=== PATIENT | female | born 2005 | race Two or more races ===

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

== ENCOUNTER 2025-02-15 10:18 | Emergency (ER) | payer MEDICAID ==
[~2025-02-15] VITALS: Ht 160 cm; Wt 65.6 kg
[~2025-02-15 10:18] MED LIST changes: +[UNRECOGNIZED DRUG - CODE] OR
--- NOTE | 2025-02-15 10:49 | ED.PDOC ---
HPI Comments HPI: Poor Historian. 19-year-old female presents to emergency depart for evaluation of near-syncope that happened while she was at work this morning. Patient states having history of syncopal episodes and has been seen and evaluated by cardiology in the past and they do not know the cause of her syncopal episodes. Patient did not have any syncope today. 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 Patient was brought done here to the ED for further evaluation. Past Medical History: Anxiety, depression, insomnia Past Surgical History: Denies any REVIEW OF SYSTEMS: CONSTITUTIONAL: Denies acute: fever, diaphoresis, chills, HEAD: Denies acute: headache, photophobia Eyes: Denies acute: Double vision, vision loss, eye pain, eye discharge. EARS: Denies acute: tinnitus, hearing loss, ear discharge, ear pain, THROAT: Denies acute: sore throat, swelling, difficulty swallowing , pain with swallowing, change in voice. NECK: Denies acute: neck pain, neck swelling, stiff neck. HEART: Denies acute : chest pain, palpitations, LUNGS: Denies acute: SOB, wheezing, cough, hemoptysis ABDOMEN: Denies acute: abdominal pain, Nausea, Vomiting, diarrhea, melena , hematemesis, hematochezia SKIN: Denies acute: rash, redness, lesions, itchiness. EXTREMITIES: Denies acute: calf pain, numbness, tingling, weakness, denies pain in extremity. Denies acute: Low back pain. Neuro: Denies acute: focal neurological deficit, motor or sensory focal neurological deficit, tremors, seizure like activity, confusion, change in mental status, loss of bowel or bladder function, cauda equina like symptoms. : Denies acute: dysuria, hematuria, flank pain, increase in urinary frequency. PSYCH: Denies acute: hallucination, suicidal ideation, homicidal ideation. FEMALE: Denies acute: abnormal vaginal bleeding, foul odor, unusual discharge. PHYSICAL EXAM: General: no acute distress, awake and alert. Head: normocephalic, atraumatic. Neck: supple, trachea is midline, no swelling. Throat: Normal phonation. Eyes:, no erythema, no purulent discharge, no proptosis, no icterus. Heart: regular rate, regular rhythm, no significant murmur appreciated. Lungs: no apparent respiratory distress, Able to speak in full sentences. No wheezing, no rhonchi, no crackles. No stridors Clear to auscultation bilaterally. Abdomen: non tender to palpation, non distended, soft, no guarding, no rebound, + bowel sounds. Neuro: Awake, Alert, oriented to name, self, situation, follows commands GCS=15. Speech is normal. Skin: no petechia, no purpura, no cyanosis, non-pale, not jaundice. Lower extremities: --no - Pitting edema no deformity, no focal swelling, no calf TTP. Makes eye contact. moves all four extremities. Face: no apparent facial droop. Ambulating in the ED independently. PERRLA, EOM-I CN 2-12 are grossly intact, No nystagmus. No nuchal rigidity, Kernig's sign, Brudzinski's sign, no meningeal signs. ED COURSE: Chief Complaint: Dizziness Time Seen by MD: 10:28 Primary Care Provider: DONELL Reviewed Notes: Nurses Notes, Allergies Allergies: Coded Allergies: Penicillins (Verified Allergy, Unknown, 01/06/24) Home Meds Active Scripts Nitrofurantoin Monohydrate Mac (Macrobid) 100 Mg Cap, 100 MG PO BID for 7 Days, #14 CAP Prov:MOIZ LANDRUM DO 02/15/25 Pseudoephedrine (12HOUR DECONGESTANT) 120 Mg Tab, 120 MG OR BID for 10 Days, #20 TAB Prov:EDENILSON MORROW MD 01/29/24 Lorazepam (Ativan) 0.5 Mg Tab, 1 TAB PO DAILY for 5 Days, #5 TAB Prov:LEILA HINES MD 01/20/24 Ondansetron Odt 4MG Tab (ZOFRAN PO) 4 Mg Tb, 4 MG PO TID for 7 Days, #21 TAB ODT TAB-DISSOLVE IN MOUTH, THEN SWALLOW Prov:LEILA HINES MD 01/20/24 Dicyclomine Hcl (BENTYL CAPSULE) 10 Mg Cp, 2 CAP PO Q6HPRN PRN, #30 CAP 3 Refills Prov:RENATA ENRIQUEZ DO 01/06/24 Pantoprazole Sodium Sesquihydr (Protonix) 40 Mg Tab, 40 MG PO DAILY, #30 TAB Prov:RENATA ENRIQUEZ DO 01/06/24 Information Source: Patient Mode of Arrival: Ambulatory Past Medical History PAST MEDICAL HISTORY: Anxiety, GERD Surgical History: Denies all surgeries CORN GROWER 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 Was a procedure done?: No CP Differential Dx Differential Diagnosis: AV Block 1st Degree, AV Block 2nd Degree, AV Block 3rd Degree Differential Diagnosis: Other (Includes but not limited to thyroid disease, encephalopathy, electrolyte abnormality, sepsis, infection, intracranial pathology, drug adverse effects, arrhythmia, kidney insufficiency, ACS, CVA, malignancy, anemia) X-Ray, Labs, Meds, VS Vital Signs Date Time Temp Pulse Resp B/P (MAP) Pulse Ox O2 Delivery O2 Flow Rate FiO2 02/15/25 14:55 98.1 75 17 109/66 (80) 100 98.1 02/15/25 12:04 98.0 96 17 124/79 (94) 97 98.0 02/15/25 12:01 96 16 97 Room Air* 0 21 02/15/25 10:30 87 02/15/25 10:25 98.6 88 18 114/74 (87) 97 98.6 Lab Test 02/15/25 12:29 02/15/25 10:37 02/15/25 10:26 Range/Units Urine Color Yellow Yellow Urine Clarity Turbid H Clear Urine pH 5.5 5.0-9.0 Urine Specific [place] 1.034 1.001-1.035 Urine Protein Trace H Negative Urine Ketones 3+ H Negative Urine Blood Negative Negative /uL Urine Nitrite Negative Negative Urine Bilirubin Negative Negative Urine Urobilinogen Normal Negative mg/dL Urine Leukocyte Esterase 1+ Negative /uL Urine RBC 3 0 - 4 /hpf Urine Microscopic WBC 12 H 0-5 /HPF Urine Squamous Epithelial Cells Few <5 /hpf Urine Bacteria None seen None Seen /hpf Urine Hyaline Casts Few 0 - 2 /lpf Urine Mucus Few None Seen Urine Glucose Normal Normal mg/dL Urine Test Negative Negative Urine Opiates Screen Neg NEGATIVE Urine Fentanyl Screen Neg NEGATIVE Urine Barbiturates Screen Neg NEGATIVE Urine Phencyclidine Screen Neg NEGATIVE Urine Amphetamines Screen Neg NEGATIVE Urine Benzodiazepines Screen Neg NEGATIVE Urine Cocaine Screen Neg NEGATIVE Urine Cannabinoids Screen Pos NEGATIVE White Blood Count 7.5 4.4-10.8 10^3/uL Red Blood Count 4.94 4.0-5.20 10^6/uL Hemoglobin 14.2 12.2-16.2 g/dL Hematocrit 41.7 36.0-46.0 % Mean Corpuscular Volume 84.4 80.0-100.0 fL Mean Corpuscular Hemoglobin 28.8 28.0-32.0 pg Mean Corpuscular Hemoglobin Concent 34.1 32.0-36.0 g/dL Red Cell Distribution Width 13.6 11.8-14.3 % Platelet Count 372 140-450 10^3/uL Mean Platelet Volume 8.7 6.9-10.8 fL Neutrophils (%) (Auto) 73.2 37.0-80.0 % Lymphocytes (%) (Auto) 16.5 10.0-50.0 % Monocytes (%) (Auto) 9.3 0.0-12.0 % Eosinophils (%) (Auto) 0.5 0.0-7.0 % Basophils (%) (Auto) 0.5 0.0-2.0 % Neutrophils # (Auto) 5.5 1.6-8.6 10 ^3/uL Lymphocytes # (Auto) 1.2 0.4-5.4 10 ^3/uL Monocytes # (Auto) 0.7 0-1.3 10 ^3/uL Eosinophils # (Auto) 0 0-0.8 10 ^3/uL Basophils # (Auto) 0 0-0.2 10 ^3/uL Nucleated Red Blood Cells 0.0 % Sodium Level 137 136-145 mmol/L Potassium Level 3.9 3.5-5.1 mmol/L Chloride Level 106 98-107 mmol/L Carbon Dioxide Level 24 20-31 mmol/L Anion Gap 7 5-15 Blood Urea Nitrogen 16 9-23 mg/dL Creatinine 0.79 0.550-1.02 mg/dL Glomerular Filtration Rate Calc 110 >90 mL/min BUN/Creatinine Ratio 20.3 H 10.0-20.0 Serum Glucose 87 74-106 mg/dL Lactic Acid Level 0.9 0.4-2.0 mmol/L Calcium Level 10.8 H 8.7-10.4 mg/dL Magnesium Level 2.1 1.6-2.6 mg/dL Total Bilirubin 0.6 0.2-1.0 mg/dL Aspartate Amino Transferase (AST) 23 13-40 U/L Alanine Aminotransferase (ALT) 15 7-40 U/L Alkaline Phosphatase 56 46-116 U/L Troponin I High Sensitivity < 3 L </=34 ng/L Total Protein 7.9 5.7-8.2 g/dL Albumin 5.3 H 3.2-4.8 g/dL Lipase 27 12-53 U/L Thyroid Stimulating Hormone (TSH) 1.44 0.55-4.78 uIU/mL POC Glucose 89 70-106 mg/dl Current Medications Medications (Trade) Dose Ordered Sig/Tara Route Start Time Stop Time Status Last Admin Sodium Chloride 1,000 ml @ 1,000 mls/hr Q1H ONCE IV 02/15/25 11:30 02/15/25 12:29 DC 02/15/25 12:01 [place] [address] Ph: [phone] DIAGNOSTIC IMAGING Diagnostic Imaging Report : [id number] Signed PATIENT: JONATHAN WEAVER MACCT: [id number] UNIT: [id number] : 2005 LOC: ER ROOM / BED: / AGE / SEX: 19 / F ADM STATUS: REG ER SERVICE 1028 ORDERING PHYSICIAN: MOIZ LANDRUM DO PROCEDURE(s): CXRP - CHEST PORTABLE REASON: DIZZY, NEAR SYNCOPE ORDER NUMBER(s): [id number], ACCESSION NUMBER(s): [id number] CHEST RADIOGRAPH Indication: DIZZY, NEAR SYNCOPE Technique: Single frontal view of the chest was obtained COMPARISON: None FINDINGS: Lines and Tubes: None Lungs: Clear Pleura: No effusion. No pneumothorax. Cardiomediastinal contours: Unremarkable Bones: Unremarkable IMPRESSION: No acute disease. ATED BY: BRAIN ESCOTO MD DICTATED DATE/TIME: 02/15/25 1419 SIGNED BY: BRAIN ESCOTO MD SIGNED DATE/TIME: 02/15/25 1419 CC: Time of 1ST Reevaluation: 00:00 Reevaluation 1ST: Resolved Patient Education/Counseling: Diagnosis, Treatment Family Education/Counseling: No Family Present Comments Patient presented with the above HPI.---near-syncope--workup was initiated. patient was found with the above mentioned diagnosis. the following medications were ordered: please refer to order lists of meds and tests obtained by myself Dr. Landrum. Patient ED course and VS have been stabilized. Patient has been reassessed in the ED and remained in a stable condition. Pertinent incidental findings were discussed with the patient and/or family. Patient/family voices understanding and is agreeable with plan. Patient has been observed in the ED adequate length of time to insure improvement/stability. Escalation of care considered: Consideration of escalation to observation or admission Patient was DISCHARGED home in a stable condition. All the reports of any imaging studies that were ordered by myself were reviewed by myself. Departure 1 Departure Time of Disposition: 14:28 Impression: Primary Impression: Near syncope Additional Impression: UTI (urinary tract infection) Disposition: 01 HOME / SELF CARE / HOMELESS Condition: Stable Additional Instructions: Additional discharge instructions: You MUST follow-up with your primary care/family doctor in 1 to 2 days. If you are unable to see your primary care/family doctor, please return to our emergency room for re-assessment and re-evaluation in 1 to 2 days. Return to the emergency room here in our facility or to the nearest ER [facility] if your symptoms change or worsen. CONSULTATIONS: you MUST Follow-up for consultation as soon as possible with: neurology and cardiology in 1-2 days. Please call for appointment. You MUST call the consultants office yourself to make an appointment. You may need to arrange that through your insurance and/or your primary/family doctor. If you are unable to see the business objects consultant in 1 to 2 days, you must return to our emergency room (or any other ER of your choice) for re-assessment and re- evaluation. Adequate fluid hydration. e-Prescriptions Nitrofurantoin Monohydrate Mac (Macrobid) 100 Mg Cap 100 MG PO BID for 7 Days, #14 CAP Prov: MOIZ LANDRUM DO 02/15/25 Discharged With: Self Critical Care Note Critical Care Time?: No Heart Score Heart Score: Heart Score Response (Comments) Value History Slightly Suspicious 0 EKG Normal 0 Age <45 0 Risk Factors No known risk factors 0 Troponin Normal limit 0 Total 0 I personally scribed for MOIZ LANDRUM DO ([email or web address]) on 02/15/25 at 12:50. Electronically submitted by Jorge Barajas ([facility]). MOIZ LANDRUM DO Feb 15, 2025 10:49
[2025-02-15 10:57] LABS: Basophils # (auto) 0 10 ^3/uL (0-0.2); Basophils % (auto) 0.5 % (0.0-2.0); Eosinophils # (auto) 0 10 ^3/uL (0-0.8); Eosinophils % (auto) 0.5 % (0.0-7.0); Hematocrit 41.7 % (36.0-46.0); Hemoglobin 14.2 g/dL (12.2-16.2); Lymphocytes # (auto) 1.2 10 ^3/uL (0.4-5.4); Lymphocytes % (auto) 16.5 % (10.0-50.0); Mean Corpuscular Hemoglobin 28.8 pg (28.0-32.0); Mean Corpuscular Hgb Conc. 34.1 g/dL (32.0-36.0); Mean Corpuscular Volume 84.4 fL (80.0-100.0); Monocytes # (auto) 0.7 10 ^3/uL (0-1.3); Monocytes % (auto) 9.3 % (0.0-12.0); Neutrophils # (auto) 5.5 10 ^3/uL (1.6-8.6); Neutrophils % (auto) 73.2 % (37.0-80.0); Platelet Count (auto) 372 10^3/uL (140-450); Red Blood Cells 4.94 10^6/uL (4.0-5.20); Red Cell Distribution Width 13.6 % (11.8-14.3); White Blood Cell 7.5 10^3/uL (4.4-10.8)
[2025-02-15 11:17] LABS: Alanine Aminotransferase 15 U/L (7-40); Alkaline Phosphatase 56 U/L (46-116); Anion Gap 7 (5-15); Aspartate Aminotransferase 23 U/L (13-40); BUN/Creatinine Ratio 20.3 (10.0-20.0); Bilirubin, Total 0.6 mg/dL (0.2-1.0); Blood Urea Nitrogen 16 mg/dL (9-23); Carbon Dioxide 24 mmol/L (20-31); Chloride 106 mmol/L (98-107); Glucose 87 mg/dL (74-106); Lipase 27 U/L (12-53); Potassium 3.9 mmol/L (3.5-5.1); Sodium 137 mmol/L (136-145); Total Protein 7.9 g/dL (5.7-8.2)
[2025-02-15 11:31] LABS: Albumin 5.3 g/dL (3.2-4.8); Calcium 10.8 mg/dL (8.7-10.4)
[2025-02-15 12:01] VITALS: PULSE 96; RESP 16; O2SAT 97
[2025-02-15] MEDS: SODIUM CHLORIDE 0.9% 1,000 ML IV ONE (12:01)
[2025-02-15 12:30] LABS: Urine Bacteria None Seen /hpf (None Seen)
[2025-02-15 12:47] LABS: Urine Blood Negative /uL (Negative); Urine Clarity Turbid (Clear); Urine Color Yellow (Yellow); Urine Hyaline Cast FEW /lpf (0 - 2); Urine Mucus FEW (None Seen); Urine Protein, UAD TRACE (Negative); Urine Specific Gravity 1.034 (1.001-1.035); Urine Squamous Epithelial Cell FEW /hpf (<5); Urine Urobilinogen Normal (Negative); Urine WBC 12 /HPF (0-5); Urine pH 5.5 (5.0-9.0)
[2025-02-15 13:02] LABS: Cannabinoid Screen, Urine Pos (NEGATIVE)
[2025-02-15 13:03] LABS: Amphetamine Screen, Urine Neg (NEGATIVE); Barbiturate Scree,Urine Neg (NEGATIVE); Benzodiazephine Screen, Urine Neg (NEGATIVE); Cocaine Screen, Urine Neg (NEGATIVE); Opiate Scree,Urine Neg (NEGATIVE); Phencyclidine Screen, Urine Neg (NEGATIVE)
--- NOTE | 2025-02-15 14:21 | DVH ---
CHEST RADIOGRAPH Indication: DIZZY, NEAR SYNCOPE Technique: Single frontal view of the chest was obtained COMPARISON: None FINDINGS: Lines and Tubes: None Lungs: Clear Pleura: No effusion. No pneumothorax. Cardiomediastinal contours: Unremarkable Bones: Unremarkable IMPRESSION: No acute disease.
[2025-02-15] MEDS ORDERED: NITR-87 PO (14:29)
[2025-02-15 14:55] VITALS: BP 109/66; PULSE 75; RESP 17; TEMP 98.1; O2SAT 100
--- NOTE | 2025-02-16 12:19 | ECG ---
[facility] Test Date: 2025-02-15 Test Time: 10:30:24 Pat Name: JONATHAN WEAVER Department: ED Room: Gender: F Title Closer: YURI : 2005 Requested By: MOIZ LANDRUM Order Number: [id number] Reading MD: Gabe Stevenson Measurements Intervals [place] Rate: 87 P: 73 KS: 145 QRS: 97 QRSD: 90 T: 0 QT: 357 QTc: 430 Interpretive Statements Sinus rhythm Borderline right axis deviation Baseline wander in lead(s) V4 Electronically Signed On 02-17-2025 17:33:12 PDT by Gabe Stevenson Please click the below link to view image of tracing.
== END 2025-02-15 15:49 | disposition home or self-care (01) ==
LOC: ER 10:18
DX: R55 Syncope and collapse (principal); N39.0 Urinary tract infection, site not specified; F41.9 Anxiety disorder, unspecified; F32.A Depression, unspecified; K21.9 Gastro-esophageal reflux disease without esophagitis; Z98.890 Other specified postprocedural states; Z79.899 Other long term (current) drug therapy; Z88.0 Allergy status to penicillin
CPT/HCPCS: 36415; 71045; 80053; 80307; 81001; 81025; 82947; 83605; 83690; 83735; 84443; 84484; 85025; 93005; 96360; 96361; 99285; J7030; 82962

== ENCOUNTER 2025-04-14 07:01 | Inpatient (IN) | payer BC, MEDICAID ==
[~2025-04-14] VITALS: Ht 160 cm; Wt 68.5 kg
[~2025-04-14 07:01] MED LIST changes: +NITR-87 PO
[2025-04-14] MEDS: KETOROLAC TROMETH 30 MG/ML 1ML VIAL IV ONE (07:49)
[2025-04-14] MEDS: ONDANSETRON HCL 4 MG/2 ML VIAL IV ONE ×2 (07:49→10:15)
[2025-04-14] MEDS: SODIUM CHLORIDE 0.9% 2,000 ML IV ONE (07:49)
[2025-04-14 07:54] VITALS: PULSE 79; RESP 20; O2SAT 98
--- NOTE | 2025-04-14 08:11 | ED.PDOC ---
GI ASSESSMENT HPI Comments 19-year-old female presents to the ER with prior history of anxiety, depression, insomnia in the chief complaint of N/V/D. Patient reports on originally being coming to the ER one month was told she has a UTI and was given antibiotics, same thing happened last week and was given antibiotics, was given two course antibiotics for her UTI in the past month. Patient states on having bilateral flank pain with the left worse since Wednesday of 04/10/25, asthma as N/V/D X 0200 today. Patient does note that she had the chills earlier w/ a cough. Denies chills, fever, SOB, CP. No other associated symptoms, modifiers, recent injuries or sick contacts present at this time. Chief Complaint: Flank Pain Time Seen by MD: 07:20 Primary Care Provider: DONELL Reviewed Notes: Nurses Notes, Medications, Allergies Allergies: Coded Allergies: Penicillins (Verified Allergy, Unknown, 01/06/24) Home Meds Active Scripts Nitrofurantoin Monohydrate Mac (Macrobid) 100 Mg Cap, 100 MG PO BID for 7 Days, #14 CAP Prov:MOIZ LANDRUM DO 02/15/25 Pseudoephedrine (12HOUR DECONGESTANT) 120 Mg Tab, 120 MG OR BID for 10 Days, #20 TAB Prov:EDENILSON MORROW MD 01/29/24 Lorazepam (Ativan) 0.5 Mg Tab, 1 TAB PO DAILY for 5 Days, #5 TAB Prov:LEILA HINES MD 01/20/24 Ondansetron Odt 4MG Tab (ZOFRAN PO) 4 Mg Tb, 4 MG PO TID for 7 Days, #21 TAB ODT TAB-DISSOLVE IN MOUTH, THEN SWALLOW Prov:LEILA HINES MD 01/20/24 Dicyclomine Hcl (BENTYL CAPSULE) 10 Mg Cp, 2 CAP PO Q6HPRN PRN, #30 CAP 3 Refills Prov:RENATA ENRIQUEZ DO 01/06/24 Pantoprazole Sodium Sesquihydr (Protonix) 40 Mg Tab, 40 MG PO DAILY, #30 TAB Prov:RENATA ENRIQUEZ DO 01/06/24 Information Source: Patient Mode of Arrival: Ambulatory Timing: Hours Duration: Since onset, Hours Prehospital treatment: None Quality: None Vomitus: Bilious Stool: Loose Severity: Moderate Recent: None Recent Hx of: None Pain Location: None Associated sign and symptoms: Nausea, Vomiting, Diarrhea Past Medical History PAST MEDICAL HISTORY: Anxiety, Depression Past Medical History (Other): Insomnia Surgical History: Denies all surgeries 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 Family History Family History: Reviewed,noncontributory to illness, Family hx of Cancer Family History (Other): Ovarian cysts, posterior orthostatic tachycardia syndrome Social History Smoker: Non-Smoker Alcohol: Denies ETOH Use Drugs: Denies Drug Use Lives In: Home Constitutional: reports: chills; denies: diaphoresis, fatigue, fever, malaise, sweats, weakness, others EENTM: denies: blurred vision, double vision, ear bleeding, ear discharge, ear drainage, ear pain, ear ringing, eye pain, eye redness, hearing loss, mouth pain, mouth swelling, nasal discharge, nose bleeding, nose congestion, nose pain, photophobia, tearing, throat pain, throat swelling, voice changes, others Respiratory: denies: cough, hemoptysis, orthopnea, SOB at rest, shortness of breath, SOB with excertion, stridor, wheezing, others Gastrointestinal: reports: diarrhea, nausea, vomiting Genitourinary: reports: flank pain; denies: abnormal vagina bleeding, burning, dyspareunia, dysuria, frequency, hematuria, incontinence, pain, , vagina discharge, urgency, others Neurological: denies: dizziness, fainting, headache, left sided numbness, left sided weakness, numbness, paresthesia, pre-existing deficit, right sided numbness, right sided weakness, seizure, speech problems, tingling, tremors, weakness, others Musculoskeletal: denies: back pain, gout, joint pain, joint swelling, muscle pain, muscle stiffness, neck pain, others Integumetry: denies: bruises, change in color, change in hair/nails, dryness, laceration, lesions, lumps, rash, wounds, others Allergic/Immunocompromised: denies: Difficulty Healing, Frequent Infections, Hives, Itching, others Hematologic/Lymphatic: denies: anemia, blood clots, easy bleeding, easy bruising, swollen glands, others Endocrine: denies: excessive hunger, excessive sweating, excessive thirst, excessive urination, flushing, intolerance to cold, intolerance to heat, unexplained weight gain, unexplained weight loss, others Psychiatric: denies: anxiety, bipolar disorder, depression, hopeless, panic disorder, schizophrenia, sleepless, suicidal, others All Other Systems: Reviewed and Negative Physical Exam Exam Comments Left CVA tenderness, mild diffuse tender to palpation in the abdomen General Appearance: No Apparent Distress, Normal HEENT: Normal ENT Inspection, Pharynx Normal, TMs Normal Neck: Full Range of Motion, Non-Tender, Normal, Normal Inspection Respiratory: Chest Non-Tender, Lungs Clear, No Accessory Muscle Use, No Respiratory Distress, Normal Breath Sounds Cardiovascular: No Edema, No JVD, No Murmur, No Gallop, Normal Peripheral Pulses, Regular Rate/Rhythm Breast Exam: Deferred Gastrointestinal: No Organomegaly, Non Tender, No Pulsatile Mass, Normal Bowel Sounds, Soft Genitalia: Deferred Pelvic: Deferred Rectal: Deferred Extremities: No calf tenderness, Normal capillary refill, Normal inspection, Normal range of motion, Non-tender, No pedal edema Musculoskeletal : Apperance: Normal Neurologic: Alert, gatehouse attendant II-XII nml as Tested, No Motor Deficits, Normal Affect, Normal Mood, No Sensory Deficits Cerebellar Function: Normal Reflexes: Normal Skin: Dry, Normal Color, Warm Lymphatic: No Adenopathy Was a procedure done? Was a procedure done?: No GI differential Dx Differential Diagnosis: N/A Other Differential Diagnosis Pyelonephritis, UTI, dehydration, electrolyte abnormality, gastroenteritis X-Ray, Labs, Meds, VS Vital Signs Date Time Temp Pulse Resp B/P (MAP) Pulse Ox O2 Delivery O2 Flow Rate FiO2 04/14/25 09:56 98.1 72 18 114/72 (86) 99 98.1 04/14/25 07:54 79 20 98 Room Air* 0 21 04/14/25 07:42 98.7 101 18 120/62 (81) 97 98.7 04/14/25 07:38 97.8 110 18 121/72 (88) 95 97.8 Lab Test 04/14/25 08:06 04/14/25 07:34 Range/Units White Blood Count 11.6 H 4.4-10.8 10^3/uL Red Blood Count 4.88 4.0-5.20 10^6/uL Hemoglobin 13.9 12.2-16.2 g/dL Hematocrit 41.0 36.0-46.0 % Mean Corpuscular Volume 84.0 80.0-100.0 fL Mean Corpuscular Hemoglobin 28.4 28.0-32.0 pg Mean Corpuscular Hemoglobin Concent 33.8 32.0-36.0 g/dL Red Cell Distribution Width 13.0 11.8-14.3 % Platelet Count 297 140-450 10^3/uL Mean Platelet Volume 8.7 6.9-10.8 fL Neutrophils (%) (Auto) 89.3 H 37.0-80.0 % Lymphocytes (%) (Auto) 5.0 L 10.0-50.0 % Monocytes (%) (Auto) 4.6 0.0-12.0 % Eosinophils (%) (Auto) 0.2 0.0-7.0 % Basophils (%) (Auto) 0.9 0.0-2.0 % Neutrophils # (Auto) 10.3 H 1.6-8.6 10 ^3/uL Lymphocytes # (Auto) 0.6 0.4-5.4 10 ^3/uL Monocytes # (Auto) 0.5 0-1.3 10 ^3/uL Eosinophils # (Auto) 0 0-0.8 10 ^3/uL Basophils # (Auto) 0.1 0-0.2 10 ^3/uL Nucleated Red Blood Cells 0.1 % Sodium Level 142 136-145 mmol/L Potassium Level 4.0 3.5-5.1 mmol/L Chloride Level 109 H 98-107 mmol/L Carbon Dioxide Level 24 20-31 mmol/L Anion Gap 9 5-15 Blood Urea Nitrogen 7 L 9-23 mg/dL Creatinine 0.72 0.550-1.02 mg/dL Glomerular Filtration Rate Calc 123 >90 mL/min BUN/Creatinine Ratio 9.7 L 10.0-20.0 Serum Glucose 112 H 74-106 mg/dL Calcium Level 9.7 8.7-10.4 mg/dL Total Bilirubin 0.4 0.2-1.0 mg/dL Aspartate Amino Transferase (AST) 14 13-40 U/L Alanine Aminotransferase (ALT) 13 7-40 U/L Alkaline Phosphatase 51 46-116 U/L Total Protein 7.1 5.7-8.2 g/dL Albumin 4.7 3.2-4.8 g/dL Urine Color Light-yellow Yellow Urine Clarity Clear Clear Urine pH 6.5 5.0-9.0 Urine Specific [place] 1.018 1.001-1.035 Urine Protein Negative Negative Urine Ketones Negative Negative Urine Blood Negative Negative /uL Urine Nitrite Negative Negative Urine Bilirubin Negative Negative Urine Urobilinogen Normal Negative mg/dL Urine Leukocyte Esterase Negative Negative /uL Urine RBC 1 0 - 4 /hpf Urine Microscopic WBC 1 0-5 /HPF Urine Squamous Epithelial Cells Few <5 /hpf Urine Bacteria Few H None Seen /hpf Urine Mucus Few None Seen Urine Glucose Normal Normal mg/dL Urine Test Negative Negative Current Medications Medications (Trade) Dose Ordered Sig/[facility] Route Start Time Stop Time Status Last Admin Ondansetron HCl (Zofran) 4 mg ONCE ONCE IV 04/14/25 07:30 04/14/25 07:31 DC 04/14/25 07:49 Ketorolac Tromethamine (Toradol Injection) 30 mg ONCE ONCE IV 04/14/25 07:30 04/14/25 07:31 DC 04/14/25 07:49 Sodium Chloride 2,000 ml @ 1,000 mls/hr Q2H ONCE IV 04/14/25 07:30 04/14/25 09:29 DC 04/14/25 07:49 Ondansetron HCl (Zofran) 4 mg ONCE ONCE IV 04/14/25 10:15 04/14/25 10:16 DC 04/14/25 10:15 Levofloxacin/ Dextrose 100 ml @ 100 mls/hr ONCE ONCE IV 04/14/25 10:15 04/14/25 11:14 04/14/25 10:15 19-year-old female presents here with pyelonephritis and likely gastroenteritis. Patient states she has already had 2 course of p.o. outpatient antibiotics and continues to have worsening symptoms. She just finished a round of Macrobid this past Wednesday. She states she now has severe left flank pain and since last night she now has vomiting and diarrhea. Blood work was Done which was largely normal with a normal WBC count and normal metabolic profile. She does have CVA tenderness on my examination. Plan was initially to discharge the patient home with Levaquin. However despite giving the patient Zofran IV, fluids and Toradol in the ER, within 1 hour of the medications, patient's condition again worsened and she was vomiting again. At this time I do not believe she will be able to tolerate p.o. meds and given she has failed outpatient antibiotics she would benefit from inpatient admission. Patient has a penicillin allergy therefore Levaquin has been given.pt with with known history of Anaphylaxis. Time of 1ST Reevaluation: 07:50 Reevaluation 1ST: Unchanged Patient Education/Counseling: Diagnosis, Treatment, Prognosis Family Education/Counseling: No Family Present Departure 1 Departure Time of Disposition: 09:35 Impression: Primary Impression: Pyelonephritis Additional Impression: Gastroenteritis Disposition: 09 ADMITTED INPATIENT Condition: Fair Critical Care Note Critical Care Time?: No Stability Stability form required: No Heart Score Heart Score: Heart Score Response (Comments) Value History N/A 0 EKG N/A 0 Age N/A 0 Risk Factors N/A 0 Troponin N/A 0 Total 0 I personally scribed for KAREN RHODES MD ([email or web address]) on 04/14/25 at 08:11. Electronically submitted by Sigifredo Chavez ([employer]). I personally scribed for KAREN RHODES MD ([email or web address]) on 04/14/25 at 09:37. Electronically submitted by Sigifredo Chavez ([employer]). I personally scribed for KAREN RHODES MD ([email or web address]) on 04/14/25 at 09:38. Electronically submitted by Sigifredo Chavez ([facility] KAREN RHODES MD April 14, 2025 08:11
[2025-04-14 08:12] LABS: Urine Bacteria FEW /hpf (None Seen); Urine Blood Negative /uL (Negative); Urine Clarity Clear (Clear); Urine Color Light-Yellow (Yellow); Urine Mucus FEW (None Seen); Urine Protein, UAD Negative (Negative); Urine Specific Gravity 1.018 (1.001-1.035); Urine Squamous Epithelial Cell FEW /hpf (<5); Urine Urobilinogen Normal (Negative); Urine WBC 1 /HPF (0-5); Urine pH 6.5 (5.0-9.0)
[2025-04-14 08:13] LABS: Basophils # (auto) 0.1 10 ^3/uL (0-0.2); Basophils % (auto) 0.9 % (0.0-2.0); Eosinophils # (auto) 0 10 ^3/uL (0-0.8); Eosinophils % (auto) 0.2 % (0.0-7.0); Hemoglobin 13.9 g/dL (12.2-16.2); Lymphocytes # (auto) 0.6 10 ^3/uL (0.4-5.4); Mean Corpuscular Hemoglobin 28.4 pg (28.0-32.0); Mean Corpuscular Hgb Conc. 33.8 g/dL (32.0-36.0); Monocytes # (auto) 0.5 10 ^3/uL (0-1.3); Monocytes % (auto) 4.6 % (0.0-12.0); Neutrophils # (auto) 10.3 10 ^3/uL (1.6-8.6); Neutrophils % (auto) 89.3 % (37.0-80.0); Nucleated Red Blood Cells % 0.1 %; Platelet Count (auto) 297 10^3/uL (140-450); Red Blood Cells 4.88 10^6/uL (4.0-5.20); White Blood Cell 11.6 10^3/uL (4.4-10.8)
[2025-04-14 08:30] LABS: Alanine Aminotransferase 13 U/L (7-40); Albumin 4.7 g/dL (3.2-4.8); Alkaline Phosphatase 51 U/L (46-116); Anion Gap 9 (5-15); Aspartate Aminotransferase 14 U/L (13-40); BUN/Creatinine Ratio 9.7 (10.0-20.0); Calcium 9.7 mg/dL (8.7-10.4); Carbon Dioxide 24 mmol/L (20-31); Sodium 142 mmol/L (136-145); Total Protein 7.1 g/dL (5.7-8.2)
[2025-04-14 08:31] LABS: Bilirubin, Total 0.4 mg/dL (0.2-1.0)
[2025-04-14 08:34] LABS: Blood Urea Nitrogen 7 mg/dL (9-23); Chloride 109 mmol/L (98-107); Glucose 112 mg/dL (74-106)
[2025-04-14] MEDS: levoFLOXacin 500MG 100 ML IV ONE (10:15)
[2025-04-14] MEDS: METOCLOPRAMIDE HCL 5MG/ml INJ 2ml VIAL IV ONE (13:25)
[2025-04-14] MEDS: MORPHINE SULFATE 4 MG/ML SYR/VIAL IV ONE (13:27)
[2025-04-14] MEDS ORDERED: DICYCLOMINE HCL 10 MG CAP PO PRN (13:45)
[2025-04-14] MEDS: SODIUM CHLORIDE 0.9% 1,000 ML IV SCH (14:35)
--- NOTE | 2025-04-14 15:21 | DVH ---
INDICATION: left flank pain TECHNIQUE: Multiple real-time sonographic images of the kidneys and bladder were obtained. COMPARISON: None FINDINGS: The right kidney measures 0.7 cm in length, which is normal in size. There is normal echoge nicity of the right kidney. No hydronephrosis. The left kidney measures 10 cm in length, which is normal in size. Nonobstructing calculi left kidney .. No hydronephrosis. Carty catheter in bladder and bladder is empty IMPRESSION: 1. Right kidney measures 9.7 cm. 2. Left kidney measures 10 cm. There are multiple left renal calculi with no hydronephrosis.
--- NOTE | 2025-04-14 15:41 | DVHHP2 ---
History of Present Illness Reason for Visit: Left flank pain History of Present Illness This is a pleasant 19-year-old female presents to the ER with prior history of anxiety, depression, insomnia in the chief complaint of N/V/D. Patient reports on originally coming to the ER one month and was told she has a UTI and was given antibiotics, same thing happened last week and was given antibiotics, was given two course of antibiotics for her UTI in the past month. Patient states on having bilateral flank pain with the left worse since Wednesday of 04/10/25. The Patient does note that she had the chills earlier w/ a cough. The patient is concerned about her symptoms and would like to be further evaluated and treated. The patient will be admitted under hospitalist care to the medical- surgical unit. The patient Denies chills, fever, SOB, CP. No other associated symptoms, modifiers, recent injuries or sick contacts present at this time. The plan has been discussed with the patient in which all questions concerns have been addressed Psych: Anxiety, Depression Family History: Cancer Smoke: No ALCOHOL: none Drugs: None Lives: with Family Domestic Violence: Neg Review of Systems Constitutional: Yes: Chills Gastrointestinal: Nausea, Vomiting, Diarrhea Allergies: Coded Allergies: Penicillins (Verified Allergy, Unknown, 01/06/24) Medications Current Medications Medications Dose Ordered Sig/Tara Route Start Time Stop Time Status Last Admin Dose Admin Ketorolac Tromethamine 15 mg Q6HPRN PRN IV 04/14/25 13:30 04/19/25 13:29 Sodium Chloride 1,000 ml @ 100 mls/hr Q10H IV 04/14/25 13:30 04/14/25 14:35 100 MLS/HR Ondansetron HCl 4 mg Q4HP PRN IV 04/14/25 13:30 Acetaminophen 650 mg Q6HP PRN PO 04/14/25 13:30 Dicyclomine HCl 20 mg Q6HPRN PRN PO 04/14/25 13:45 Lorazepam 0.5 mg DAILY PO 04/15/25 10:00 Pantoprazole Sodium 40 mg DAILY PO 04/15/25 10:00 Exam Vital Signs Vital Signs Date Time Temp Pulse Resp B/P (MAP) Pulse Ox O2 Delivery O2 Flow Rate FiO2 04/14/25 13:27 72 12 116/68 04/14/25 11:02 98.6 98 98.6 04/14/25 07:54 Room Air* 0 21 General Appearance: Alert, Oriented X3, Cooperative, No acute distress HEENT: Atraumatic, PERRLA, Mucous membr. moist/pink Respiratory: Clear to auscultation, Normal air movement Cardiovascular: Normal S1, Normal S2, No murmurs Abdominal: Normal bowel sounds, Soft, No hepatospenomegaly, No masses Extremities: No clubbing, No cyanosis, No edema, Normal pulses, No tenderness/swelling Skin: No rashes, No breakdown Neuro: Normal gait, Normal speech, Strength at 5/5 X4 ext, Normal tone, Sensation intact, Cranial nerves 3-12 NL, Reflexes 2+ Psych/Mental Status: Mental status NL, Mood NL Labs/Xrays Labs Test 04/14/25 08:06 04/14/25 07:34 Range/Units White Blood Count 11.6 H 4.4-10.8 10^3/uL Red Blood Count 4.88 4.0-5.20 10^6/uL Hemoglobin 13.9 12.2-16.2 g/dL Hematocrit 41.0 36.0-46.0 % Mean Corpuscular Volume 84.0 80.0-100.0 fL Mean Corpuscular Hemoglobin 28.4 28.0-32.0 pg Mean Corpuscular Hemoglobin Concent 33.8 32.0-36.0 g/dL Red Cell Distribution Width 13.0 11.8-14.3 % Platelet Count 297 140-450 10^3/uL Mean Platelet Volume 8.7 6.9-10.8 fL Neutrophils (%) (Auto) 89.3 H 37.0-80.0 % Lymphocytes (%) (Auto) 5.0 L 10.0-50.0 % Monocytes (%) (Auto) 4.6 0.0-12.0 % Eosinophils (%) (Auto) 0.2 0.0-7.0 % Basophils (%) (Auto) 0.9 0.0-2.0 % Neutrophils # (Auto) 10.3 H 1.6-8.6 10 ^3/uL Lymphocytes # (Auto) 0.6 0.4-5.4 10 ^3/uL Monocytes # (Auto) 0.5 0-1.3 10 ^3/uL Eosinophils # (Auto) 0 0-0.8 10 ^3/uL Basophils # (Auto) 0.1 0-0.2 10 ^3/uL Nucleated Red Blood Cells 0.1 % Sodium Level 142 136-145 mmol/L Potassium Level 4.0 3.5-5.1 mmol/L Chloride Level 109 H 98-107 mmol/L Carbon Dioxide Level 24 20-31 mmol/L Anion Gap 9 5-15 Blood Urea Nitrogen 7 L 9-23 mg/dL Creatinine 0.72 0.550-1.02 mg/dL Glomerular Filtration Rate Calc 123 >90 mL/min BUN/Creatinine Ratio 9.7 L 10.0-20.0 Serum Glucose 112 H 74-106 mg/dL Calcium Level 9.7 8.7-10.4 mg/dL Total Bilirubin 0.4 0.2-1.0 mg/dL Aspartate Amino Transferase (AST) 14 13-40 U/L Alanine Aminotransferase (ALT) 13 7-40 U/L Alkaline Phosphatase 51 46-116 U/L Total Protein 7.1 5.7-8.2 g/dL Albumin 4.7 3.2-4.8 g/dL Urine Color Light-yellow Yellow Urine Clarity Clear Clear Urine pH 6.5 5.0-9.0 Urine Specific [place] 1.018 1.001-1.035 Urine Protein Negative Negative Urine Ketones Negative Negative Urine Blood Negative Negative /uL Urine Nitrite Negative Negative Urine Bilirubin Negative Negative Urine Urobilinogen Normal Negative mg/dL Urine Leukocyte Esterase Negative Negative /uL Urine RBC 1 0 - 4 /hpf Urine Microscopic WBC 1 0-5 /HPF Urine Squamous Epithelial Cells Few <5 /hpf Urine Bacteria Few H None Seen /hpf Urine Mucus Few None Seen Urine Glucose Normal Normal mg/dL Urine Test Negative Negative Assessment/Plan Assessment/Plan Left flank pain--patient complain of bilateral flank pain worse on left since Wednesday associated with chills, nausea, vomiting and diarrhea Patient came to ER one month ago and was given antibiotic for her UTI Patient's symptoms has not improved despite being on two rounds of p.o. antibiotics Admit to medical-surgical unit Reviewed CBC shows leukocytosis Reviewed BMP which is normal test is normal Urinalysis is normal Ordered kidney ultrasound pending IV hydration IV antibiotic patient was given levofloxacin in ER IV Toradol p.r.n. for pain IV antiemetic Clear liquid diet Reconcile home medication DVT prophylaxis not indicated patient ambulatory PUD prophylaxis continue Protonix Labs in a.m. Discussed plan of care with the patient in which all questions concerns have been addressed Plan discussed with: Patient My Orders Orders - REKHA VEGA Procedure Category Date Status Time Ketorolac Injection PHA 04/14/25 In Process (Toradol Injection) 13:30 Admit ADMIT 04/14/25 Transmitted 13:27 Sodium Chloride 0.9% PHA 04/14/25 In Process 13:30 Ondansetron Hcl PHA 04/14/25 In Process (Zofran) 13:30 Complete Blood Count LAB 04/15/25 Verified 04:00 Comprehensive LAB 04/15/25 Verified Metabolic Panel 04:00 Condition: Fair SOFIA 04/14/25 In Process 13:27 Acetaminophen Tablet PHA 04/14/25 In Process (Tylenol Tablet) 13:30 Clear Liq Diet DIET 04/14/25 Transmitted Lunch BRP SOFIA 04/14/25 In Process 13:27 Dicyclomine Capsule PHA 04/14/25 In Process (Bentyl Capsule) 13:45 Lorazepam Tablet PHA 04/15/25 In Process (Ativan Tablet) 10:00 Pantoprazole Tablet PHA 04/15/25 In Process (Protonix Tablet) 10:00 Kidney US 04/14/25 Resulted 14:19 Date of Service: April 14, 2025 Billing Provider: REKHA VEGA Common Visit Codes: [id number] INP/OBS CARE (HIGH) REKHA VEGA April 14, 2025 15:41
[2025-04-14] MEDS: cefTRIAXone 1GM/50ML D5W 50 ML IV ONE (15:45)
[2025-04-14 17:50] VITALS: BP 109/61; PULSE 67; RESP 18; TEMP 98.7; O2SAT 98
[2025-04-14 17:53] VITALS: BP 109/61; PULSE 67; RESP 15; RESP 18; TEMP 98.4; O2SAT 98
[2025-04-14 20:00] VITALS: PULSE 65; RESP 19; O2SAT 98
[2025-04-14 21:00] VITALS: BP 99/74; PULSE 65; RESP 19; TEMP 97.4; O2SAT 98
[2025-04-15] VITALS (7 sets, daily range): BP systolic 101–119; BP diastolic 52–64; PULSE 61–74; RESP 15–20; TEMP 97.5–98.4; O2SAT 94–98
[2025-04-15] MEDS: ACETAMINOPHEN 325 MG TAB PO PRN (04:33)
[2025-04-15 08:21] LABS: Basophils # (auto) 0 10 ^3/uL (0-0.2); Basophils % (auto) 0.4 % (0.0-2.0); Eosinophils # (auto) 0.4 10 ^3/uL (0-0.8); Eosinophils % (auto) 6.3 % (0.0-7.0); Hematocrit 37.3 % (36.0-46.0); Lymphocytes # (auto) 1.3 10 ^3/uL (0.4-5.4); Mean Corpuscular Hgb Conc. 34.7 g/dL (32.0-36.0); Mean Corpuscular Volume 83.7 fL (80.0-100.0); Monocytes # (auto) 0.5 10 ^3/uL (0-1.3); Monocytes % (auto) 8.6 % (0.0-12.0); Neutrophils # (auto) 3.5 10 ^3/uL (1.6-8.6); Neutrophils % (auto) 61.7 % (37.0-80.0); Nucleated Red Blood Cells % 0.4 %; Platelet Count (auto) 250 10^3/uL (140-450); Red Blood Cells 4.46 10^6/uL (4.0-5.20); Red Cell Distribution Width 12.9 % (11.8-14.3); White Blood Cell 5.7 10^3/uL (4.4-10.8)
[2025-04-15 08:36] LABS: Alanine Aminotransferase 10 U/L (7-40); Albumin 4.2 g/dL (3.2-4.8); Alkaline Phosphatase 47 U/L (46-116); Anion Gap 9 (5-15); Aspartate Aminotransferase 14 U/L (13-40); BUN/Creatinine Ratio 8.9 (10.0-20.0); Bilirubin, Total 0.6 mg/dL (0.2-1.0); Calcium 9.8 mg/dL (8.7-10.4); Carbon Dioxide 24 mmol/L (20-31); Glucose 100 mg/dL (74-106); Potassium 4.3 mmol/L (3.5-5.1); Sodium 140 mmol/L (136-145); Total Protein 6.3 g/dL (5.7-8.2)
[2025-04-15 08:39] LABS: Blood Urea Nitrogen 7 mg/dL (9-23); Chloride 107 mmol/L (98-107)
[2025-04-15] MEDS ORDERED: cefTRIAXone 1GM/50ML D5W 50 ML IV SCH (09:00)
[2025-04-15] MEDS: PANTOPRAZOLE 40 MG TAB PO SCH (10:12)
[2025-04-15] MEDS: LORazepam 0.5 MG TAB PO SCH (10:12)
[2025-04-15] MEDS: levoFLOXacin 500MG 100 ML IV SCH (11:55)
[2025-04-15] MEDS: KETOROLAC TROMETH 30 MG/ML 1ML VIAL IV PRN (11:56)
--- NOTE | 2025-04-15 13:27 | DVHPN2 ---
Reviewed: Care Plan, H&P, Labs, Medications, Previous Orders, Radiology Changes from previous H/P or p: No Changes Gastrointestinal: Nausea, Vomiting, Diarrhea Objective Vitals Vital Signs Date Time Temp Pulse Resp B/P (MAP) Pulse Ox O2 Delivery O2 Flow Rate FiO2 04/15/25 13:16 98.2 67 15 103/59 (74) 98 98.2 04/14/25 20:00 Room Air* 0 21 Intake/Output Intake and Output 04/15/25 07:00 Intake Total 405 ml Balance 405 ml Intake Oral 405 ml # Voids 2 Medications Current Medications Medications Dose Ordered Sig/Tara Route Start Time Stop Time Status Last Admin Dose Admin Ketorolac Tromethamine 15 mg Q6HPRN PRN IV 04/14/25 13:30 04/19/25 13:29 04/15/25 11:56 15 MG Sodium Chloride 1,000 ml @ 100 mls/hr Q10H IV 04/14/25 13:30 04/15/25 12:07 100 MLS/HR Ondansetron HCl 4 mg Q4HP PRN IV 04/14/25 13:30 Acetaminophen 650 mg Q6HP PRN PO 04/14/25 13:30 04/15/25 10:26 650 MG Dicyclomine HCl 20 mg Q6HPRN PRN PO 04/14/25 13:45 Lorazepam 0.5 mg DAILY PO 04/15/25 10:00 04/15/25 10:12 0.5 MG Pantoprazole Sodium 40 mg DAILY PO 04/15/25 10:00 04/15/25 10:12 40 MG Ceftriaxone Sodium 50 ml @ 100 mls/hr DAILY@09 IV 04/15/25 09:00 Cancel Levofloxacin/ Dextrose 100 ml @ 100 mls/hr DAILY IV 04/15/25 10:00 04/15/25 11:55 100 MLS/HR Laboratory Results Laboratory Tests 04/15/25 08:05 Chemistry Test 04/15/25 08:05 Albumin 4.2 g/dL (3.2-4.8) Calcium Level 9.8 mg/dL (8.7-10.4) Total Protein 6.3 g/dL (5.7-8.2) LFT Test 04/15/25 08:05 Alanine Aminotransferase (ALT) 10 U/L (7-40) Alkaline Phosphatase 47 U/L (46-116) Aspartate Amino Transferase (AST) 14 U/L (13-40) Total Bilirubin 0.6 mg/dL (0.2-1.0) Urinalysis Test 04/14/25 07:34 Urine Color Light-yellow (Yellow) Urine Clarity Clear (Clear) Urine pH 6.5 (5.0-9.0) Urine Specific [place] 1.018 (1.001-1.035) Urine Protein Negative (Negative) Urine Ketones Negative (Negative) Urine Blood Negative /uL (Negative) Urine Nitrite Negative (Negative) Urine Bilirubin Negative (Negative) Urine Urobilinogen Normal mg/dL (Negative) Urine Leukocyte Esterase Negative /uL (Negative) Urine RBC 1 /hpf (0 - 4) Urine Microscopic WBC 1 /HPF (0-5) Urine Squamous Epithelial Cells Few /hpf (<5) Urine Bacteria Few /hpf (None Seen) H Urine Mucus Few (None Seen) Urine Glucose Normal mg/dL (Normal) Urine Test Negative (Negative) Microbiology Microbiology Date/Time Source Procedure Growth Status 04/14/25 07:34 Voided Urine Urine Culture - Preliminary Resulted Labs and/or images reviewed: Labs reviewed by me, Image(s) reviewed by me Assessment/Plan Assessment/Plan Acute left flank pain: Toradol Multiple left renal calculi: Consult for Urology Dr. Winter UTI: Urine cultures Levaquin Anxiety Depression Plan discussed with: Patient Date of Service: April 15, 2025 Billing Provider: VALENTINO JACOB MD Common Visit Codes: [id number] INP/OBS CARE(HIGH) VALENTINO JACOB MD April 15, 2025 13:27
--- NOTE | 2025-04-15 17:24 | DVH ---
Exam: CT CT AB PEL WO CON-NO ORAL OR IV History: kidney stones Comparison Study: CT CT AB PEL WO CON-NO ORAL OR IV on DOS: 01/20/24 TECHNIQUE: Multidetector CT of the abdomen and pelvis without IV contrast. Axial, coronal and sagitta l multiplanar reformats were obtained from the axial data set by the technologist. Radiation Dose Information: CT Dose: CTDI volume is 8.03 mGy. Dose-length product is 422.6 mGy*cm FINDINGS: The lung bases are clear. Partially visualized heart is unremarkable. Liver, spleen, gallbladder, pancreas and adrenal glands unremarkable. Ureters and urinary bladder unremarkable. Uterus is unremarkable. 2.2 cm left ovarian cyst with 3.5 c m right ovarian cyst. Uqrn-cl-wjzlocqs distention of the stomach filled with ingested material. Small bowel loops unremarka ble. Appendicolith is noted over the distal Appendix. Otherwise, appendix is unremarkable. Small to moderate amount of fecal material within the colon. No evidence of intraperitoneal free air . Trace amount of free fluid within the cul-de-sac which is most likely physiologic. No evidence of aortic aneurysm. Shotty mesenteric lymph nodes. The soft tissues are unremarkable. No destructive osseous lesions noted. IMPRESSION: No acute abdominal or pelvic finding. Radiation optimization: All CT scans at this facility use at least one of these dose optimization mikhail hniques: automated exposure control mA and/or kV adjustment per patient size (includes targeted exam s where dose is matched to clinical indication) or iterative reconstruction.
--- NOTE | 2025-04-15 18:09 | DVHINCON2 ---
Date of service: April 15, [address] Moreau Reason for Consultation kidney stones History of Present Illness History Source: Patient, RN Notes, MD Notes Exam Limitations: No limitations HPI 19 yo female with abdominal pain n/v/d. Recently treated for UTI. US showed possible left sided renal stones. CT was negative for stones. I personally reviewed the images to confirm no stones or other pathology. Home Meds Active Scripts Nitrofurantoin Monohydrate Mac (Macrobid) 100 Mg Cap, 100 MG PO BID for 7 Days, #14 CAP Prov:MOIZ LANDRUM DO 02/15/25 Pseudoephedrine (12HOUR DECONGESTANT) 120 Mg Tab, 120 MG OR BID for 10 Days, #20 TAB Prov:EDENILSON MORROW MD 01/29/24 Lorazepam (Ativan) 0.5 Mg Tab, 1 TAB PO DAILY for 5 Days, #5 TAB Prov:LEILA HINES MD 01/20/24 Ondansetron Odt 4MG Tab (ZOFRAN PO) 4 Mg Tb, 4 MG PO TID for 7 Days, #21 TAB ODT TAB-DISSOLVE IN MOUTH, THEN SWALLOW Prov:LEILA HINES MD 01/20/24 Dicyclomine Hcl (BENTYL CAPSULE) 10 Mg Cp, 2 CAP PO Q6HPRN PRN, #30 CAP 3 Refills Prov:RENATA ENRIQUEZ DO 01/06/24 Pantoprazole Sodium Sesquihydr (Protonix) 40 Mg Tab, 40 MG PO DAILY, #30 TAB Prov:RENATA ENRIQUEZ DO 01/06/24 Past Medical History Psychiatric: Anxiety, Depression Review of Systems Gastrointestinal: Nausea, Vomiting, Abdominal Pain, Diarrhea H&P Exam Vital Signs Vital Signs Date Time Temp Pulse Resp B/P (MAP) Pulse Ox O2 Delivery O2 Flow Rate FiO2 04/15/25 16:42 97.6 70 15 102/54 (70) 96 97.6 04/15/25 08:00 Room Air* 0 21 Labs/Xrays [facility] [id number] [place] [id number] Ph: [phone] DIAGNOSTIC IMAGING Diagnostic Imaging Report : [id number] Signed PATIENT: JONATHAN WEAVER MACCT: [id number] UNIT: [id number] : 2005 LOC: [facility] ROOM / BED: [facility] / A AGE / SEX: 19 / F ADM STATUS: ADM IN SERVICE 1434 ORDERING PHYSICIAN: PAKO GILMORE NP PROCEDURE(s): ABPL - CT AB PEL WO CON-NO ORAL OR IV REASON: kidney stones ORDER NUMBER(s): [id number], ACCESSION NUMBER(s): [id number] Exam: CT CT AB PEL WO CON-NO ORAL OR IV History: kidney stones Comparison Study: CT CT AB PEL WO CON-NO ORAL OR IV on DOS: 01/20/24 TECHNIQUE: Multidetector CT of the abdomen and pelvis without IV contrast. Axial, coronal and sagittal multiplanar reformats were obtained from the axial data set by the technologist. Radiation Dose Information: CT Dose: CTDI volume is 8.03 mGy. Dose-length product is 422.6 mGy*cm FINDINGS: The lung bases are clear. Partially visualized heart is unremarkable. Liver, spleen, gallbladder, pancreas and adrenal glands unremarkable. Ureters and urinary bladder unremarkable. Uterus is unremarkable. 2.2 cm left ovarian cyst with 3.5 cm right ovarian cyst. Vyhm-jl-kfphktum distention of the stomach filled with ingested material. Small bowel loops unremarkable. Appendicolith is noted over the distal Appendix. Otherwise, appendix is unremarkable. Small to moderate amount of fecal material within the colon. No evidence of intraperitoneal free air . Trace amount of free fluid within the cul-de-sac which is most likely physiologic. No evidence of aortic aneurysm. Shotty mesenteric lymph nodes. The soft tissues are unremarkable. No destructive osseous lesions noted. IMPRESSION: No acute abdominal or pelvic finding. Radiation optimization: All CT scans at this facility use at least one of these dose optimization techniques: automated exposure control mA and/or kV adjustment per patient size (includes targeted exams where dose is matched to clinical indication) or iterative reconstruction. ATED BY: CHERELLE SILVEIRA DO DICTATED DATE/TIME: 04/15/251721 SIGNED BY: CHERELLE SILVEIRA DO SIGNED DATE/TIME: 04/15/251721 CC: Labs Test 04/15/25 08:05 04/14/25 07:34 Range/Units White Blood Count 5.7 # 4.4-10.8 10^3/uL Red Blood Count 4.46 4.0-5.20 10^6/uL Hemoglobin 13.0 12.2-16.2 g/dL Hematocrit 37.3 36.0-46.0 % Mean Corpuscular Volume 83.7 80.0-100.0 fL Mean Corpuscular Hemoglobin 29.0 28.0-32.0 pg Mean Corpuscular Hemoglobin Concent 34.7 32.0-36.0 g/dL Red Cell Distribution Width 12.9 11.8-14.3 % Platelet Count 250 140-450 10^3/uL Mean Platelet Volume 8.9 6.9-10.8 fL Neutrophils (%) (Auto) 61.7 37.0-80.0 % Lymphocytes (%) (Auto) 23.0 10.0-50.0 % Monocytes (%) (Auto) 8.6 0.0-12.0 % Eosinophils (%) (Auto) 6.3 0.0-7.0 % Basophils (%) (Auto) 0.4 0.0-2.0 % Neutrophils # (Auto) 3.5 1.6-8.6 10 ^3/uL Lymphocytes # (Auto) 1.3 0.4-5.4 10 ^3/uL Monocytes # (Auto) 0.5 0-1.3 10 ^3/uL Eosinophils # (Auto) 0.4 0-0.8 10 ^3/uL Basophils # (Auto) 0 0-0.2 10 ^3/uL Nucleated Red Blood Cells 0.4 % Sodium Level 140 136-145 mmol/L Potassium Level 4.3 3.5-5.1 mmol/L Chloride Level 107 98-107 mmol/L Carbon Dioxide Level 24 20-31 mmol/L Anion Gap 9 5-15 Blood Urea Nitrogen 7 L 9-23 mg/dL Creatinine 0.79 0.550-1.02 mg/dL Glomerular Filtration Rate Calc 110 >90 mL/min BUN/Creatinine Ratio 8.9 L 10.0-20.0 Serum Glucose 100 74-106 mg/dL Calcium Level 9.8 8.7-10.4 mg/dL Total Bilirubin 0.6 0.2-1.0 mg/dL Aspartate Amino Transferase (AST) 14 13-40 U/L Alanine Aminotransferase (ALT) 10 7-40 U/L Alkaline Phosphatase 47 46-116 U/L Total Protein 6.3 5.7-8.2 g/dL Albumin 4.2 3.2-4.8 g/dL Urine Color Light-yellow Yellow Urine Clarity Clear Clear Urine pH 6.5 5.0-9.0 Urine Specific [place] 1.018 1.001-1.035 Urine Protein Negative Negative Urine Ketones Negative Negative Urine Blood Negative Negative /uL Urine Nitrite Negative Negative Urine Bilirubin Negative Negative Urine Urobilinogen Normal Negative mg/dL Urine Leukocyte Esterase Negative Negative /uL Urine RBC 1 0 - 4 /hpf Urine Microscopic WBC 1 0-5 /HPF Urine Squamous Epithelial Cells Few <5 /hpf Urine Bacteria Few H None Seen /hpf Urine Mucus Few None Seen Urine Glucose Normal Normal mg/dL Urine Test Negative Negative Microbiology Date/Time Source Procedure Growth Status 04/14/25 07:34 Voided Urine Urine Culture - Preliminary Resulted Assessment/Plan Problem List: (1) Abdominal pain Plan no intervention indicated. urology signing off Plan discussed with: PAKO Plaza NP April 15, 2025 18:09
[2025-04-15] MEDS: ONDANSETRON HCL 4 MG/2 ML VIAL IV PRN (18:38)
[2025-04-16] VITALS (7 sets, daily range): BP systolic 103–116; BP diastolic 53–70; PULSE 65–85; RESP 15–18; TEMP 36.6; O2SAT 97–100
[2025-04-16] MEDS: SODIUM CHLORIDE 0.9% 1,000 ML IV ONE (08:45)
[2025-04-16] MEDS ORDERED: TRAM-626 PO (12:26)
[2025-04-16] MEDS ORDERED: CIPR-173 PO (12:26)
--- NOTE | 2025-04-16 12:31 | DVHPN2 ---
Reviewed: Care Plan, H&P, Labs, Medications, Previous Orders, Radiology Changes from previous H/P or p: No Changes Gastrointestinal: Nausea, Vomiting, Diarrhea Objective Vitals Vital Signs Date Time Temp Pulse Resp B/P (MAP) Pulse Ox O2 Delivery O2 Flow Rate FiO2 04/16/25 08:31 98.3 65 15 115/53 (73) 100 98.3 04/15/25 20:05 Room Air* 0 21 Intake/Output Intake and Output 04/16/25 07:00 Intake Total 1700 ml Balance 1700 ml Intake Oral 1200 ml IV Total 500 ml # Voids 13 # Bowel Movements 4 Medications Current Medications Medications Dose Ordered Sig/Tara Route Start Time Stop Time Status Last Admin Dose Admin Ketorolac Tromethamine 15 mg Q6HPRN PRN IV 04/14/25 13:30 04/19/25 13:29 04/16/25 10:21 15 MG Sodium Chloride 1,000 ml @ 100 mls/hr Q10H IV 04/14/25 13:30 04/15/25 12:07 100 MLS/HR Ondansetron HCl 4 mg Q4HP PRN IV 04/14/25 13:30 04/15/25 18:38 4 MG Acetaminophen 650 mg Q6HP PRN PO 04/14/25 13:30 04/16/25 08:34 650 MG Dicyclomine HCl 20 mg Q6HPRN PRN PO 04/14/25 13:45 Lorazepam 0.5 mg DAILY PO 04/15/25 10:00 04/16/25 10:21 0.5 MG Pantoprazole Sodium 40 mg DAILY PO 04/15/25 10:00 04/16/25 10:22 40 MG Ceftriaxone Sodium 50 ml @ 100 mls/hr DAILY@09 IV 04/15/25 09:00 Cancel Levofloxacin/ Dextrose 100 ml @ 100 mls/hr DAILY IV 04/15/25 10:00 04/16/25 10:21 100 MLS/HR Laboratory Results Laboratory Tests 04/15/25 08:05 Urinalysis Test 04/14/25 07:34 Urine Color Light-yellow (Yellow) Urine Clarity Clear (Clear) Urine pH 6.5 (5.0-9.0) Urine Specific [place] 1.018 (1.001-1.035) Urine Protein Negative (Negative) Urine Ketones Negative (Negative) Urine Blood Negative /uL (Negative) Urine Nitrite Negative (Negative) Urine Bilirubin Negative (Negative) Urine Urobilinogen Normal mg/dL (Negative) Urine Leukocyte Esterase Negative /uL (Negative) Urine RBC 1 /hpf (0 - 4) Urine Microscopic WBC 1 /HPF (0-5) Urine Squamous Epithelial Cells Few /hpf (<5) Urine Bacteria Few /hpf (None Seen) H Urine Mucus Few (None Seen) Urine Glucose Normal mg/dL (Normal) Urine Test Negative (Negative) Microbiology Microbiology Date/Time Source Procedure Growth Status 04/14/25 07:34 Voided Urine Urine Culture - Final Complete Labs and/or images reviewed: Labs reviewed by me, Image(s) reviewed by me Assessment/Plan Assessment/Plan Acute left flank pain: Toradol Multiple left renal calculi by renal ultrasound: CT abdomen pelvis without contrast negative Consult for Urology Dr. Winter appreciated, no urological intervention required UTI: Urine cultures Levaquin Anxiety Depression Patient is asymptomatic without any pain or fever Plan discussed with: Patient My Orders Orders - VALENTINO JACOB MD Procedure Category Date Status Time * Urology Consult CONS 04/15/25 Transmitted 13:33 Sodium Chloride 0.9% PHA 04/16/25 In Process 08:45 Regular Diet DIET 04/16/25 Transmitted Lunch Date of Service: April 16, 2025 Billing Provider: VALENTINO JACOB MD Common Visit Codes: [id number] INP/OBS CARE(HIGH) VALENTINO JACOB MD April 16, 2025 12:31
--- NOTE | 2025-04-16 12:37 | DVHDS2 ---
Discharge Summary Date of Admission April 14, 2025 at 13:27 Date of Discharge: April 16, 2025 Admitting Diagnosis Left flank pain Wounds: None Labs/Diagnostic Data: Laboratory Results Test 04/15/25 08:05 04/14/25 07:34 White Blood Count 5.7 10^3/uL (4.4-10.8) Red Blood Count 4.46 10^6/uL (4.0-5.20) Hemoglobin 13.0 g/dL (12.2-16.2) Hematocrit 37.3 % (36.0-46.0) Mean Corpuscular Volume 83.7 fL (80.0-100.0) Mean Corpuscular Hemoglobin 29.0 pg (28.0-32.0) Mean Corpuscular Hemoglobin Concent 34.7 g/dL (32.0-36.0) Red Cell Distribution Width 12.9 % (11.8-14.3) Platelet Count 250 10^3/uL (140-450) Mean Platelet Volume 8.9 fL (6.9-10.8) Neutrophils (%) (Auto) 61.7 % (37.0-80.0) Lymphocytes (%) (Auto) 23.0 % (10.0-50.0) Monocytes (%) (Auto) 8.6 % (0.0-12.0) Eosinophils (%) (Auto) 6.3 % (0.0-7.0) Basophils (%) (Auto) 0.4 % (0.0-2.0) Neutrophils # (Auto) 3.5 10 ^3/uL (1.6-8.6) Lymphocytes # (Auto) 1.3 10 ^3/uL (0.4-5.4) Monocytes # (Auto) 0.5 10 ^3/uL (0-1.3) Eosinophils # (Auto) 0.4 10 ^3/uL (0-0.8) Basophils # (Auto) 0 10 ^3/uL (0-0.2) Nucleated Red Blood Cells 0.4 % Sodium Level 140 mmol/L (136-145) Potassium Level 4.3 mmol/L (3.5-5.1) Chloride Level 107 mmol/L (98-107) Carbon Dioxide Level 24 mmol/L (20-31) Anion Gap 9 (5-15) Blood Urea Nitrogen 7 mg/dL (9-23) Creatinine 0.79 mg/dL (0.550-1.02) Glomerular Filtration Rate Calc 110 mL/min (>90) BUN/Creatinine Ratio 8.9 (10.0-20.0) Serum Glucose 100 mg/dL (74-106) Calcium Level 9.8 mg/dL (8.7-10.4) Total Bilirubin 0.6 mg/dL (0.2-1.0) Aspartate Amino Transferase (AST) 14 U/L (13-40) Alanine Aminotransferase (ALT) 10 U/L (7-40) Alkaline Phosphatase 47 U/L (46-116) Total Protein 6.3 g/dL (5.7-8.2) Albumin 4.2 g/dL (3.2-4.8) Urine Color Light-yellow (Yellow) Urine Clarity Clear (Clear) Urine pH 6.5 (5.0-9.0) Urine Specific [place] 1.018 (1.001-1.035) Urine Protein Negative (Negative) Urine Ketones Negative (Negative) Urine Blood Negative /uL (Negative) Urine Nitrite Negative (Negative) Urine Bilirubin Negative (Negative) Urine Urobilinogen Normal mg/dL (Negative) Urine Leukocyte Esterase Negative /uL (Negative) Urine RBC 1 /hpf (0 - 4) Urine Microscopic WBC 1 /HPF (0-5) Urine Squamous Epithelial Cells Few /hpf (<5) Urine Bacteria Few /hpf (None Seen) Urine Mucus Few (None Seen) Urine Glucose Normal mg/dL (Normal) Urine Test Negative (Negative) Other Laboratory Tests 04/15/25 08:05 Brief Hx & Hospital Course: 19-year-old female with history of anxiety and depression came in complaining of left flank pain. Found to have multiple small calculi in the left kidney by kidney ultrasound seen by Urology Dr. Ding CT abdomen pelvis without contrast was negative for any kidney stones. No interventional was required by urologist. Mild UTI treated with Levaquin. Urine cultures negative. The patient is asymptomatic without any pain or fever at the time of discharge discharged home on Cipro and tramadol she will follow up with the primary Dr Consults/Reason for consult Urology Dr. Winter Operations or Procedures CT abdomen pelvis without contrast Kidney ultrasound Condition at Discharge: Good Final Diagnosis/Problems List Acute left flank pain: Toradol Multiple left renal calculi by renal ultrasound: CT abdomen pelvis without contrast negative Consult for Urology Dr. Winter appreciated, no urological intervention required UTI: Urine cultures Levaquin Anxiety Depression Discharge Disposition: Home Discharge Instruct/Medications Diet: Regular Activity: Light activity Follow Up/Referral: Follow up with your primary Dr as needed Medications: Cipro Tramadol Transmitted to pharmacy 35 (Time taken for discharge summary 35 minutes) Discharge Statement: "Patient was advised to return to the ER or call 911 if any headaches, dizziness, shortness of breath, chest pain, abdominal pain, bleeding, fevers, or worsening of medical condition. Patient was counseled about treatment plan, medications, possible side effects, patientverbalized understanding. All questions were answered to the best of my ability. This discharge took greater then 30 minutes in planning, reviewing documentation, counseling the patient, and discussing with other team members." ASSESSMENT ASSESSMENT Hospital Course Uneventful Assessment Acute left flank pain: Toradol Multiple left renal calculi by renal ultrasound: CT abdomen pelvis without contrast negative Consult for Urology Dr. Winter appreciated, no urological intervention required UTI: Urine cultures Levaquin Anxiety Depression Date of Service: April 16, 2025 Billing Provider: VALENTINO JACOB MD Common Visit Codes: 25777-NDG/OBS DISCH DAY >30min VALENTINO JACOB MD April 16, 2025 12:37
== END 2025-04-16 16:45 | disposition home or self-care (01) | DRG 690 ==
LOC: ER 07:01 → EEVIPCON 07:01 → OVERFLOW 13:27 → WEST WING 17:43
PROVIDERS: ADMIT Family Medicine; ATTEND Family Medicine
DX: N12 Tubulo-interstitial nephritis, not specified as acute or chronic (principal); N20.0 Calculus of kidney; F41.9 Anxiety disorder, unspecified; F32.A Depression, unspecified; K52.9 Noninfective gastroenteritis and colitis, unspecified; Z88.0 Allergy status to penicillin; Z79.899 Other long term (current) drug therapy
CPT/HCPCS: 36415; 74176; 76775; 80053; 81001; 81025; 85025; 87086; 96361; 96374; 96375; G0378; J1885; J1956; J2405

== ENCOUNTER 2025-05-22 09:22 | Emergency (ER) | payer BC, MEDICAID ==
[~2025-05-22] VITALS: Ht 160 cm; Wt 65.0 kg
[~2025-05-22 09:22] MED LIST changes: +CIPR-173 PO; +TRAM-626 PO
--- NOTE | 2025-05-22 09:34 | ED.PDOC ---
History of Present Illness HPI Comments 19-year-old female came to the ER stating that she has been having chest pain which started about hour ago. She came to work when she started to have the chest pain. Chest pain radiating into the neck. Pain is worse upon moving her neck. Denies any history of hypertension diabetes. Denies any other symptoms. Chief Complaint: Chest Pain Time Seen by MD: 09:27 Primary Care Provider: DONELL Reviewed Notes: Nurses Notes, Medications, Allergies Allergies: Coded Allergies: Penicillins (Verified Allergy, Unknown, 01/06/24) Home Meds Active Scripts Tramadol HCl (Tramadol HCl) 50 Mg Tab, 50 MG PO QID PRN, #20 TAB Prov:VALENTINO JACOB MD 04/16/25 Ciprofloxacin Hcl (Cipro) 500 Mg Tab, 1 TAB PO BID, #14 TAB Prov:VALENTINO JACOB MD 04/16/25 Nitrofurantoin Monohydrate Mac (Macrobid) 100 Mg Cap, 100 MG PO BID for 7 Days, #14 CAP Prov:MOIZ LANDRUM DO 02/15/25 Pseudoephedrine (12HOUR DECONGESTANT) 120 Mg Tab, 120 MG OR BID for 10 Days, #20 TAB Prov:EDENILSON MORROW MD 01/29/24 Lorazepam (Ativan) 0.5 Mg Tab, 1 TAB PO DAILY for 5 Days, #5 TAB Prov:LEILA HINES MD 01/20/24 Ondansetron Odt 4MG Tab (ZOFRAN PO) 4 Mg Tb, 4 MG PO TID for 7 Days, #21 TAB ODT TAB-DISSOLVE IN MOUTH, THEN SWALLOW Prov:LEILA HINES MD 01/20/24 Dicyclomine Hcl (BENTYL CAPSULE) 10 Mg Cp, 2 CAP PO Q6HPRN PRN, #30 CAP 3 Refills Prov:RENATA ENRIQEUZ DO 01/06/24 Pantoprazole Sodium Sesquihydr (Protonix) 40 Mg Tab, 40 MG PO DAILY, #30 TAB Prov:RENATA ENRIQUEZ DO 01/06/24 Information Source: Patient Mode of Arrival: Ambulatory Severity: Moderate Timing: Hours Duration: Since onset Past Medical History PAST MEDICAL HISTORY: Anxiety, Depression Surgical History: Denies all surgeries FENCE ERECTOR History: Denies all FENCE ERECTOR Hx Family History Family History: Reviewed,noncontributory to illness, Family hx of Cancer Family History (Other): Ovarian cysts, posterior orthostatic tachycardia syndrome Social History Smoker: Non-Smoker Alcohol: Denies ETOH Use Drugs: Denies Drug Use Lives In: Home Constitutional: denies: chills, diaphoresis, fatigue, fever, malaise, sweats, weakness, others EENTM: denies: blurred vision, double vision, ear bleeding, ear discharge, ear drainage, ear pain, ear ringing, eye pain, eye redness, hearing loss, mouth pain, mouth swelling, nasal discharge, nose bleeding, nose congestion, nose pain, photophobia, tearing, throat pain, throat swelling, voice changes, others Respiratory: denies: cough, hemoptysis, orthopnea, SOB at rest, shortness of breath, SOB with excertion, stridor, wheezing, others Cardiovascular: reports: chest pain; denies: dizzy spells, diaphoresis, Dyspnea on exertion, edema, irregular heart beat, left arm pain, lightheadedness, palpitations, PND, syncope, others Gastrointestinal: denies: abdomen distended, abdominal pain, blood streaked bowels, constipated, diarrhea, dysphagia, difficulty swallowing, hematemesis, melena, nausea, poor appetite, poor fluid intake, rectal bleeding, rectal pain, vomiting, others Genitourinary: denies: abnormal vagina bleeding, burning, dyspareunia, dysuria, flank pain, frequency, hematuria, incontinence, pain, , vagina dischar ge, urgency, others Neurological: denies: dizziness, fainting, headache, left sided numbness, left sided weakness, numbness, paresthesia, pre-existing deficit, right sided numbness, right sided weakness, seizure, speech problems, tingling, tremors, weakness, others Musculoskeletal: denies: back pain, gout, joint pain, joint swelling, muscle pain, muscle stiffness, neck pain, others Integumetry: denies: bruises, change in color, change in hair/nails, dryness, laceration, lesions, lumps, rash, wounds, others Allergic/Immunocompromised: denies: Difficulty Healing, Frequent Infections, Hives, Itching, others Hematologic/Lymphatic: denies: anemia, blood clots, easy bleeding, easy bruising, swollen glands, others Endocrine: denies: excessive hunger, excessive sweating, excessive thirst, excessive urination, flushing, intolerance to cold, intolerance to heat, unexplained weight gain, unexplained weight loss, others Psychiatric: denies: anxiety, bipolar disorder, depression, hopeless, panic disorder, schizophrenia, sleepless, suicidal, others Physical Exam General Appearance: Moderate Distress HEENT: Normal ENT Inspection, Pharynx Normal, TMs Normal Neck: Full Range of Motion, Non-Tender, Normal, Normal Inspection Respiratory: Chest Non-Tender, Lungs Clear, No Accessory Muscle Use, No Respiratory Distress, Normal Breath Sounds Cardiovascular: No Edema, No JVD, No Murmur, No Gallop, Normal Peripheral Pulses, Regular Rate/Rhythm Breast Exam: Deferred Gastrointestinal: No Organomegaly, Non Tender, No Pulsatile Mass, Normal Bowel Sounds, Soft Genitalia: Deferred Pelvic: Deferred Rectal: Deferred Extremities: No calf tenderness, Normal capillary refill, Normal inspection, Normal range of motion, Non-tender, No pedal edema Musculoskeletal : Apperance: Normal Neurologic: Alert, break and load operator II-XII nml as Tested, No Motor Deficits, Normal Affect, Normal Mood, No Sensory Deficits Cerebellar Function: Normal Reflexes: Normal Skin: Dry, Normal Color, Warm Peripheral Pulses: 3+ Radial (R), 3+ Radial (L) Lymphatic: No Adenopathy Was a procedure done? Was a procedure done?: No EKG EKG : Cardiac Rhythm: NSR Differential Dx Considerations may include: Anxiety Electrolyte imbalance X-Ray, Labs, Meds, VS Patient alert. Came in because of chest pain. Vitals stable. Answering questions. EKG reviewed does not show any acute changes. Explained to the patient. Continue monitoring. Time of 1ST Reevaluation: 09:33 Reevaluation 1ST: Improved Patient Education/Counseling: Diagnosis, Treatment, Prognosis, Need For Follow Up Family Education/Counseling: No Family Present SEPSIS Sepsis Screen Physician Orders Troponin-I Hs (05/22/25 09:24) Electrocardigram (05/22/25 09:24) Troponin-I Hs (05/22/25 10:24) Troponin-I Hs (05/22/25 12:24) Electrocardigram (05/22/25 10:24) Electrocardigram (05/22/25 12:24) Urinalysis (05/22/25 09:27) Departure 1 Departure Time of Disposition: 09:33 Impression: Primary Impression: Musculoskeletal chest pain Additional Impression: Anxiety disorder Qualified Codes: F41.9 - Anxiety disorder, unspecified Disposition: 01 HOME / SELF CARE / HOMELESS Condition: Good Discharged With: Self Critical Care Note Critical Care Time?: No Stability Stability form required: No Heart Score Heart Score: Heart Score Response (Comments) Value History Slightly Suspicious 0 EKG Normal 0 Age <45 0 Risk Factors No known risk factors 0 Troponin Normal limit 0 Total 0 CISCO HERNÁNDEZ MD May 22, 2025 09:34
[2025-05-22 09:57] LABS: Urine Bacteria FEW /hpf (None Seen); Urine Blood Negative /uL (Negative); Urine Clarity Clear (Clear); Urine Color Light-Yellow (Yellow); Urine Hyaline Cast FEW /lpf (0 - 2); Urine Mucus FEW (None Seen); Urine Protein, UAD Negative (Negative); Urine Specific Gravity 1.026 (1.001-1.035); Urine Squamous Epithelial Cell FEW /hpf (<5); Urine Urobilinogen Normal (Negative); Urine WBC 3 /HPF (0-5); Urine pH 5.5 (5.0-9.0)
--- NOTE | 2025-05-22 12:13 | ECG ---
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
[2025-05-22 12:28] VITALS: BP 108/74; PULSE 68; RESP 16; TEMP 97.8; O2SAT 98
--- NOTE | 2025-05-23 14:24 | ECG ---
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
== END 2025-05-22 12:28 | disposition home or self-care (01) ==
LOC: ER 09:22
DX: R07.89 Other chest pain (principal); F41.9 Anxiety disorder, unspecified; Z79.899 Other long term (current) drug therapy; Z88.0 Allergy status to penicillin
CPT/HCPCS: 36415; 81001; 84484; 93005

== ENCOUNTER 2025-07-07 18:41 | Emergency (ER) | payer OTHER, BC, MEDICAID ==
[~2025-07-07] VITALS: Ht 160 cm; Wt 68.2 kg
--- NOTE | 2025-07-07 19:36 | DVH ---
CLINICAL INDICATION: Trauma to pinky TECHNIQUE: XY L HAND 3V XRAY Comparison: None FINDINGS/IMPRESSION: : There is no evidence of acute fracture There appears to be minimal subluxation of the 5th dIP joint with minimal dorsal position of the dist al phalanx relative to the middle phalanx on lateral projection. Soft tissues are unremarkable.
--- NOTE | 2025-07-07 19:38 | ED.PDOC ---
Musculoskeletal HPI Comments 19 y/o F presents with c/c left pink finger pain and tingling s/p injury. 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 No additional injuries or acute symptoms endorsed. No reported pertinent history. No blood loss. Chief Complaint: Upper Extremity Time Seen by MD: 18:50 Primary Care Provider: DONELL Reviewed Notes: Nurses Notes, Medications, Allergies Allergies: Coded Allergies: Penicillins (Verified Allergy, Unknown, 01/06/24) Home Meds Active Scripts Acetaminophen (Acetaminophen) 500 Mg Tab, 500 MG PO Q4HP PRN, #30 TAB Prov:NICOLAS QUINTANILLA PAC 07/07/25 Ibuprofen (Ibuprofen) 600 Mg Tab, 1 TAB PO Q6HP PRN, #20 TAB Prov:NICOLAS QUINTANILLA PAC 07/07/25 Tramadol HCl (Tramadol HCl) 50 Mg Tab, 50 MG PO QID PRN, #20 TAB Prov:VALENTINO JACOB MD 04/16/25 Ciprofloxacin Hcl (Cipro) 500 Mg Tab, 1 TAB PO BID, #14 TAB Prov:VALENTINO JACOB MD 04/16/25 Nitrofurantoin Monohydrate Mac (Macrobid) 100 Mg Cap, 100 MG PO BID for 7 Days, #14 CAP Prov:MOIZ LANDRUM DO 02/15/25 Pseudoephedrine (12HOUR DECONGESTANT) 120 Mg Tab, 120 MG OR BID for 10 Days, #20 TAB Prov:EDENILSON MORROW MD 01/29/24 Lorazepam (Ativan) 0.5 Mg Tab, 1 TAB PO DAILY for 5 Days, #5 TAB Prov:LEILA WATKINS MD 01/20/24 Ondansetron Odt 4MG Tab (ZOFRAN PO) 4 Mg Tb, 4 MG PO TID for 7 Days, #21 TAB ODT TAB-DISSOLVE IN MOUTH, THEN SWALLOW Prov:LEILA WATKINS MD 01/20/24 Dicyclomine Hcl (BENTYL CAPSULE) 10 Mg Cp, 2 CAP PO Q6HPRN PRN, #30 CAP 3 Refills Prov:RENATA ENRIQUEZ DO 01/06/24 Pantoprazole Sodium Sesquihydr (Protonix) 40 Mg Tab, 40 MG PO DAILY, #30 TAB Prov:RENATA ENRIQUEZ DO 01/06/24 Information Source: Patient Mode of Arrival: Ambulatory Location: Left Extremity Location: [place] Timing: Hours Prehospital treatment: None Severity: Moderate Able to Move Extremity: Yes Bear Weight: Fully, Limited Pain: Moderate Mechanism: Hyperextension Circumstances: Work Related Onset of Symptoms: After Trauma Symptoms: Pain DVT Risk Factors: NONE Past Medical History PAST MEDICAL HISTORY: Anxiety, Depression Surgical History: Denies all surgeries SLEEVE IRONER History: Denies all SLEEVE IRONER Hx Family History Family History: Reviewed,noncontributory to illness, Family hx of Cancer Family History (Other): Ovarian cysts, posterior orthostatic tachycardia syndrome Social History Smoker: Non-Smoker Alcohol: Denies ETOH Use Drugs: Denies Drug Use Lives In: Home Constitutional: denies: chills, diaphoresis, fatigue, fever, malaise, sweats, weakness, others EENTM: denies: blurred vision, double vision, ear bleeding, ear discharge, ear drainage, ear pain, ear ringing, eye pain, eye redness, hearing loss, mouth pain, mouth swelling, nasal discharge, nose bleeding, nose congestion, nose rhona n, photophobia, tearing, throat pain, throat swelling, voice changes, others Respiratory: denies: cough, hemoptysis, orthopnea, SOB at rest, shortness of breath, SOB with excertion, stridor, wheezing, others Cardiovascular: denies: chest pain, dizzy spells, diaphoresis, Dyspnea on exertion, edema, irregular heart beat, left arm pain, lightheadedness, palpitations, PND, syncope, others Gastrointestinal: denies: abdomen distended, abdominal pain, blood streaked bowels, constipated, diarrhea, dysphagia, difficulty swallowing, hematemesis, melena, nausea, poor appetite, poor fluid intake, rectal bleeding, rectal pain, vomiting, others Genitourinary: denies: abnormal vagina bleeding, burning, dyspareunia, dysuria, flank pain, frequency, hematuria, incontinence, pain, , vagina discharge, urgency, others Neurological: denies: dizziness, fainting, headache, left sided numbness, left sided weakness, numbness, paresthesia, pre-existing deficit, right sided numbness, right sided weakness, seizure, speech problems, tingling, tremors, weakness, others Musculoskeletal: reports: others (Left pinky pain); denies: back pain, gout, joint pain, joint swelling, muscle pain, muscle stiffness, neck pain Integumetry: denies: bruises, change in color, change in hair/nails, dryness, laceration, lesions, lumps, rash, wounds, others Allergic/Immunocompromised: denies: Difficulty Healing, Frequent Infections, Hives, Itching, others Hematologic/Lymphatic: denies: anemia, blood clots, easy bleeding, easy bruising, swollen glands, others Endocrine: denies: excessive hunger, excessive sweating, excessive thirst, excessive urination, flushing, intolerance to cold, intolerance to heat, unexplained weight gain, unexplained weight loss, others Psychiatric: denies: anxiety, bipolar disorder, depression, hopeless, panic disorder, schizophrenia, sleepless, suicidal, others All Other Systems: Reviewed and Negative (As per HPI) Physical Exam General Appearance: Mild Distress (Mild distress due to pinky pain concerns. Patient declined any pain medication while at the facility.), Normal HEENT: Normal ENT Inspection, Pharynx Normal, TMs Normal Neck: Full Range of Motion, Non-Tender, Normal, Normal Inspection Respiratory: Chest Non-Tender, Lungs Clear, No Accessory Muscle Use, No Respiratory Distress, Normal Breath Sounds Cardiovascular: No Edema, No JVD, No Murmur, No Gallop, Normal Peripheral Pulses, Regular Rate/Rhythm Breast Exam: Deferred Gastrointestinal: No Organomegaly, Non Tender, No Pulsatile Mass, Normal Bowel Sounds, Soft Genitalia: Deferred Pelvic: Deferred Rectal: Deferred Extremities: Other (Flexor tendon of left pinky use diffusely tender to palpation through the palmar aspect and into the wrist and forearm. No crepitus appreciated. No edema or ecchymosis.) Neurologic: Alert, No Motor Deficits, Normal Affect, Normal Mood, No Sensory Deficits Cerebellar Function: NOT DONE Reflexes: NOT DONE Skin: Dry, Normal Color, Warm Lymphatic: No Adenopathy Was a procedure done? Was a procedure done?: No Differential Diagnosis EXT Differential Diagnosis: Fracture, Sprain, Dislocation, Strain X-Ray, Labs, Meds, VS Vital Signs Date Time Temp Pulse Resp B/P (MAP) Pulse Ox O2 Delivery O2 Flow Rate FiO2 07/07/25 18:42 98.0 77 16 122/75 99 98.0 [facility] [id number] [facility] [address] Ph: [phone] DIAGNOSTIC IMAGING Diagnostic Imaging Report : [id number] Signed PATIENT: JONATHAN WEAVER ACCT: [id number] UNIT: [id number] : 2005 LOC: ER ROOM / BED: / AGE / SEX: 19 / F ADM STATUS: REG ER SERVICE 1900 ORDERING PHYSICIAN: NICOLAS QUINTANILLA PAC PROCEDURE(s): LHAN - L HAND 3V XRAY REASON: Trauma to pinky ORDER NUMBER(s): [id number], ACCESSION NUMBER(s): [id number] CLINICAL INDICATION: Trauma to pinky TECHNIQUE: XY L HAND 3V XRAY Comparison: None FINDINGS/IMPRESSION: : There is no evidence of acute fracture There appears to be minimal subluxation of the 5th dIP joint with minimal dorsal position of the distal phalanx relative to the middle phalanx on lateral p rojection. Soft tissues are unremarkable. ATED BY: DANNIE FONTAINE MD DICTATED DATE/TIME: 07/07/251933 SIGNED BY: DANNIE FONTAINE MD SIGNED DATE/TIME: 07/07/251933 CC: X-Ray, Labs, Meds, VS Comment All studies performed the ED were evaluated by me personally. Imaging studies were unremarkable for any acute fractures of the finger. Patient appears to sustained a hyperextension injury. Advised patient utilize alcon taping techniques to aid in the healing process. Pain medication as needed. Time of 1ST Reevaluation: 19:51 Reevaluation 1ST: Unchanged Consultation: PCP Patient Education/Counseling: Diagnosis, Treatment, Need For Follow Up Family Education/Counseling: Diagnosis, Treatment, No Family Present Sepsis Recent Procedure: No On Antibiotic Therapy: No Respiratory Rate >20: No Heart Rate >90: No Temp<36 C (96.8 F) or >38.3 C: No SBP <90 or MAP <65 mmHG: No New Acute Mental Status Change: No Is the patient on CPAP, BIPAP,: No IV fluid given: No Departure 1 Departure Time of Disposition: 19:52 Impression: Primary Impression: Hyperextension injury of finger Disposition: 01 HOME / SELF CARE / HOMELESS Condition: Stable Additional Instructions: Utilize alcon taping techniques to aid in the healing process and pain medication as needed. e-Prescriptions Acetaminophen (Acetaminophen) 500 Mg Tab 500 MG PO Q4HP PRN, #30 TAB Prov: SOCORRONICOLAS PAC 07/07/25 Ibuprofen (Ibuprofen) 600 Mg Tab 1 TAB PO Q6HP PRN, #20 TAB Prov: NICOLAS QUINTANILLA PAC 07/07/25 Discharged With: Self, Friend Critical Care Note Critical Care Time?: No Stability Stability form required: No Heart Score Heart Score: Heart Score Response (Comments) Value History N/A 0 EKG N/A 0 Age N/A 0 Risk Factors N/A 0 Troponin N/A 0 Total 0 I personally scribed for NICOLAS QUINTANILLA ([email or web address]) on 07/07/25 at 19:38. Electronically submitted by Nick Watkins ([email or web address]). I personally scribed for ROC CONNELLY MD ([email or web address]) on 07/07/25 at 20:55. Electronically submitted by Nick Watkins ([email or web address]). NICOLAS QUINTANILLA Jul 07, 2025 19:38 ROC CONNELLY MD Jul 07, 2025 20:55
[2025-07-07] MEDS ORDERED: IBUP-1454 PO (19:53)
[2025-07-07] MEDS ORDERED: ACET500T58 PO (19:53)
[2025-07-07 21:13] VITALS: BP 111/70; PULSE 68; RESP 20; TEMP 98.6; O2SAT 98
== END 2025-07-07 21:16 | disposition home or self-care (01) ==
LOC: ER 18:49 → EEVIPCON 18:49 → ER 21:16
DX: S69.82XA Other specified injuries of left wrist, hand and finger(s), initial encounter (principal); F41.9 Anxiety disorder, unspecified; F32.A Depression, unspecified; Z79.899 Other long term (current) drug therapy; Z88.0 Allergy status to penicillin; X58.XXXA Exposure to other specified factors, initial encounter; Y93.89 Activity, other specified; Y92.89 Other specified places as the place of occurrence of the external cause; Y99.8 Other external cause status
CPT/HCPCS: 73130